=== PATIENT | female | born 1985 | race African-American/Black ===

== ENCOUNTER → 2019-06-18 | Outpatient (CLI) | payer OTHER ==
--- NOTE | 2019-06-18 11:54 | RAD ---
Examination: BREAST RIGHT History: Palpable lump in the right axilla the past 6 months with no definite change according to the patient. Comparison/Correlation: None Findings: Ultrasound imaging of the right axilla was performed. At this site reported by the patient were palpable adenopathy is present, there is a 1 cm x 0.8 cm x 0.4 cm benign-appearing lymph node. Normal-appearing hilum cortical thickness as well as contours noted. Upon physical exam by myself, there is no significant or suspicious palpable abnormality at the site reported by the patient. Impression: Right axillary lymph node is present and benign in appearance. No suspicious finding. Clinical management is recommended in determining follow-up. Electronically signed by: Jose Daniel Rabago MD (06/18/2019 11:50 AM) [facility]
== END | disposition home or self-care (01) ==
LOC: US 10:56
PROVIDERS: ATTEND Obstetrics & Gynecology
DX: N63.10 Unspecified lump in the right breast, unspecified quadrant (principal); R59.0 Localized enlarged lymph nodes
CPT/HCPCS: 76641